=== PATIENT | female | born 1985 | race Caucasian/White ===

== ENCOUNTER 2016-10-30 23:15 | Emergency (ER) | payer OTHER ==
[2016-10-30] MEDS ORDERED: NS 0.9% 1000 ML* 1,000 ML IV ONE (23:27)
[2016-10-30] MEDS ORDERED: Ondansetron INJ* 2 MG/ML VIAL IV ONE (23:27)
[2016-10-30] MEDS ORDERED: Morphine INJ* 2 MG/ML 1 ML SYRINGE IV ONE (23:27)
--- NOTE | 2016-10-31 | ED ---
I, Oh,Soohyun, scribed for Bhavin Forde MD on 10/30/16 at 2331 . Abdominal Pain/Female - HPI Summary HPI Summary: This 31 y/o female presents to ED for acute onset of diffuse abd pain since 2129 PM. She reports eating "stuffs I am not supposed to eat, like spaghetti sauce" this evening. Positive occipital YEUNG pain, nausea, and dry heaving. Ibuprofen did not alleviate abd pain. Zofran ODT was given [employer] as EMS, and improve nausea. PMHx includes GERD, "bleeding ulcer", but pt states that she stopped following up with her GI specialist. Primary care involves provider at [facility]. - History of Current Complaint Stated Complaint: ABD PAIN Time Seen by Provider: 10/30/16 23:24 Hx Obtained From: Patient, Family/Recreation Programmer - male family member present at bedside, Medical Records Onset/Duration: Sudden Onset, Still Present Timing: Constant Location: Diffuse Radiates: No Aggravating Factor(s): Nothing Alleviating Factor(s): Nothing Associated Signs and Symptoms: Positive: Nausea, Vomiting. Negative: Fever Allergies/Adverse Reactions: Allergies Allergy/AdvReac Type Severity Reaction Status Date / Time No Known Allergies Allergy Verified 10/30/16 23:48 PMH/Surg Hx/FS Hx/Imm Hx GI History: Reports: Hx Gastroesophageal Reflux Disease, Hx Ulcer - "bleeding ulcer" - Immunization History Date of Tetanus Vaccine: Unk Date of Influenza Vaccine: None - Family History Known Family History: Negative: Cardiac Disease - Social History Alcohol Use: Occasionally Substance Use Type: Reports: None Smoking Status (MU): Light Every Day Tobacco Smoker Review of Systems Negative: Fever Positive: Abdominal Pain - diffuse, Vomiting - dry heaving, Nausea All Other Systems Reviewed And Are Negative: Yes Physical Exam Triage Information Reviewed: Yes Vital Signs Reviewed: Yes Appearance: Positive: No Pain Distress, Thin Skin: Positive: Warm Eyes: Positive: ASHLIE ENT: Positive: Hearing grossly normal Neck: Positive: Supple Respiratory/Lung Sounds: Positive: Clear to Auscultation, Breath Sounds Present Cardiovascular: Positive: RRR Abdomen Description: Positive: Nontender, No Organomegaly, Soft Bowel Sounds: Positive: Present Musculoskeletal: Positive: Strength/ROM Intact Neurological: Positive: Alert, Oriented to Person Place, Time Psychiatric: Positive: Affect/Mood Appropriate Diagnostics - Laboratory Result Diagrams: 10/31/16 00:15 10/31/16 00:15 Lab Statement: Any lab studies that have been ordered have been reviewed, and results considered in the medical decision making process. Re-Evaluation - Re-Evaluation First Eval Change: Improved - results d/w pt Abdominal Pain Fem Course/Dx - Course Course Of Treatment: This 31 y/o female presents to ED for acute onset of diffuse abd pain since 2130 PM tonight. Positive n/v and dry heaving. PMHx is significant for GERD and "bleeding ulcer". Blood is wnl except for elevated WBC of 12.7, and drug screen is positive for amphetamine and cannibinoid. Pt is discharged with dx of abd pain. - Diagnoses Provider Diagnoses: Abdominal pain Discharge - Discharge Plan Condition: Improved Disposition: HOME Patient Education Materials: Abdominal Pain (ED) Referrals: [facility]ERR[facility] [Outside] - 2 Days The documentation as recorded by the Winston veloz Soohyun accurately reflects the service I personally performed and the decisions made by me, Bhavin Forde MD.
[2016-10-31 00:36] LABS: Hematocrit 39 % (35-47); Hemoglobin 12.8 g/dl (12.0-16.0); Mean Corpuscular HGB Conc 33 g/dl (31-36); Mean Corpuscular Hemoglobin 26 pg (27-31); Mean Corpuscular Volume 76 fL (80-97); Mean Platelet Volume 7 um3 (7.4-10.4); Red Blood Count 5.04 10^6/ul (4.0-5.4); Red Cell Distribution Width 18 % (10.5-15); White Blood Count 12.7 10^3/ul (3.5-10.8)
[2016-10-31 00:56] LABS: ALT 101 U/L (7-52); AST 63 U/L (13-39); Albumin 3.8 g/dL (3.2-5.2); Alkaline Phosphatase 120 U/L (34-104); Anion Gap 8 mmol/L (2-11); BUN/Creatinine Ratio 17.8 (8-20); Blood Urea Nitrogen 13 mg/dL (6-24); C Reactive Protein 3.25 mg/L (< 5.00); CO2 Carbon Dioxide 24 mmol/L (22-32); Calcium 9.1 mg/dL (8.6-10.3); Chloride 104 mmol/L (101-111); EGFR African American 119.6 (>60); Globulin 3.1 g/dL (2-4); Glucose 97 mg/dL (70-100); Lipase < 10 U/L (11.0-82.0); Magnesium 1.6 mg/dL (1.9-2.7); Potassium 3.3 mmol/L (3.5-5.0); Sodium 136 mmol/L (133-145); Total Protein 6.9 g/dL (6.4-8.9)
[2016-10-31 01:18] LABS: Urine Bilirubin Negative (Negative); Urine Glucose Negative (Negative); Urine Nitrite Negative (Negative)
[2016-10-31 02:47] LABS: Benzodiazepine Urine Screen None Detected (None Detect)
[2016-10-31 03:04] VITALS: BP 107/70
== END 2016-10-31 03:05 | disposition home or self-care (01) ==
LOC: ED 23:15
DX: R11.2 Nausea with vomiting, unspecified (principal); R10.9 Unspecified abdominal pain
CPT/HCPCS: 36415; 80053; 80307; 81003; 83605; 83690; 83735; 84702; 85025; 86140; 96374; 96375; 99285; J2270; J2405

== ENCOUNTER 2017-02-10 17:29 | Emergency (ER) | payer SELFPAY | END 2017-02-10 18:49 | disposition left against medical advice (07) | LOC: UCEAST 17:29 | DX: R23.9 Unspecified skin changes (principal); Z53.21 Procedure and treatment not carried out due to patient leaving prior to being seen by health care provider ==

== ENCOUNTER 2017-02-11 10:08 | Emergency (ER) | payer SELFPAY ==
[2017-02-11 10:27] VITALS: BP 129/87
--- NOTE | 2017-02-11 12:10 | UC ---
Skin Complaint HPI - HPI Summary HPI Summary: painful red warm swollen left wrist, multiple abscess under right arm, and in right eye brow - History of Current Complaint Chief Complaint: UCSkin Time Seen by Provider: 02/11/17 12:01 Stated Complaint: RASH/BOILS Hx Obtained From: Patient Hx Last Menstrual Period: 02/10/17 ?: No Onset/Duration: Gradual Onset, Lasting Days Timing: Constant Onset Severity: Moderate Current Severity: Severe Pain Intensity: 7 Pain Scale Used: 0-10 Numeric Location: Diffuse Aggravating Factor(s): Touch Alleviating Factor(s): Nothing Associated Signs & Symptoms: Positive: Negative, Red Streaks - left wrist has increasing pain and swelling will spreading erythema and decreased ROM left wrist Related History: Other: - PMH of injecting Meth--patient reports using last in April 2016 - Allergy/Home Medications Allergies/Adverse Reactions: Allergies Allergy/AdvReac Type Severity Reaction Status Date / Time No Known Allergies Allergy Verified 02/11/17 10:21 Home Medications: Home Medications NK [No Home Medications Reported] 02/11/17 [History Confirmed 02/11/17] Review of Systems Constitutional: Negative Skin: Other - multiple firm abscess right eye brow and right axilla, patient reports healing poorly. Eyes: Negative ENT: Negative Respiratory: Negative Cardiovascular: Negative Gastrointestinal: Negative Genitourinary: Negative Motor: Decreased ROM - left wrist Neurovascular: Negative Musculoskeletal: Arthralgia - left wrist Neurological: Negative Psychological: Negative Is Patient Immunocompromised?: No All Other Systems Reviewed And Are Negative: Yes PMH/Surg Hx/FS Hx/Imm Hx Previously Healthy: No Psychological History: Other - Substance abuse disorder---Injecting Meth last used 05/06 Other Psychological History: Substance abuse disorder - Surgical History Surgical History: None - Family History Known Family History: Negative: Cardiac Disease - Social History Occupation: Employed Part-time Lives: With Family Alcohol Use: Occasionally Substance Use Type: None Substance Use Comment - Amount & Last Used: one or two times per week Smoking Status (MU): Light Every Day Tobacco Smoker Have You Smoked in the Last Year: Yes Cessation Counseling: Patient Advised to Stop Physical Exam Triage Information Reviewed: Yes Appearance: Ill-Appearing - chronic illness, Pain Distress - mild left wrist, Thin Vital Signs: Initial Vital Signs Temp 98.2 F 02/11/17 10:22 Pulse 100 02/11/17 10:22 Resp 20 02/11/17 10:22 BP 129/87 02/11/17 10:22 Pulse Ox 100 02/11/17 10:22 Vital Signs Reviewed: Yes Eye Exam: Normal Eyes: Positive: Conjunctiva Clear ENT Exam: Normal ENT: Positive: Normal ENT inspection, Hearing grossly normal, Pharynx normal, Uvula midline. Negative: Nasal congestion, Nasal drainage, Tonsillar swelling, Tonsillar exudate, Trismus, Muffled voice, Hoarse voice, Sinus tenderness Dental Exam: Normal Dental: Positive: Gross Decay/Caries @ Neck exam: Normal Neck: Positive: Supple, Nontender Respiratory Exam: Normal Respiratory: Positive: Chest non-tender, Lungs clear, Normal breath sounds, No respiratory distress, No accessory muscle use Cardiovascular Exam: Normal Cardiovascular: Positive: RRR, No Murmur, Pulses Normal, Brisk Capillary Refill Musculoskeletal Exam: Normal Musculoskeletal: Positive: Strength Limited @ - left wrist, ROM Limited @ - left wrist, Edema @ - left wrist and forearm Neurological Exam: Normal Neurological: Positive: Alert, Muscle Tone Normal Psychological Exam: Normal Skin: Positive: Other - mutilpe Cysts no fluctulant canters Course/Dx - Course Course Of Treatment: Transfer to [facility] for further evaluation pain ful left wrist - Diagnoses Provider Diagnoses: Left wrist osteo. abscess. substance abuse disorder, nicotine dependent Discharge - Discharge Plan Condition: Guarded Disposition: OTHER Discharge Disposition Comment: [facility] Patient Education Materials: Osteomyelitis (ED) Referrals: Janet Carranza [Primary Care Provider] - 1 Week Additional Instructions: 1. Please go directly to the hospital emergency department for further care. Your wrist is very concerning for infection in the bone.
--- NOTE | 2017-02-13 18:36 | UC ---
Progress - Progress Note Progress Note: pt requesting work note. Note given 02/11-02/18/17 maurilio 02/13/17
== END 2017-02-11 12:29 ==
LOC: UCEAST 10:08
DX: M86.8X4 Other osteomyelitis, hand (principal); F15.11 Other stimulant abuse, in remission; F17.200 Nicotine dependence, unspecified, uncomplicated
CPT/HCPCS: 36415; 86703; 99211; G0463

== ENCOUNTER 2017-02-11 13:53 | Emergency (ER) | payer SELFPAY ==
[2017-02-11 17:03] LABS: Hematocrit 39 % (35-47); Hemoglobin 12.9 g/dl (12.0-16.0); Mean Corpuscular HGB Conc 34 g/dl (31-36); Mean Corpuscular Hemoglobin 26 pg (27-31); Mean Corpuscular Volume 79 fL (80-97); Mean Platelet Volume 7 um3 (7.4-10.4); Red Blood Count 4.91 10^6/ul (4.0-5.4); Red Cell Distribution Width 15 % (10.5-15); White Blood Count 11.7 10^3/ul (3.5-10.8)
[2017-02-11 17:17] LABS: Albumin 3.8 g/dL (3.2-5.2); BUN/Creatinine Ratio 16.4 (8-20); C Reactive Protein 14.16 mg/L (< 5.00); Calcium 8.9 mg/dL (8.6-10.3); EGFR African American 147.1 (>60); EGFR Non-African American 114.4 (>60); Potassium 3.9 mmol/L (3.5-5.0); Total Bilirubin 0.2 mg/dL (0.2-1.0); Total Protein 6.8 g/dL (6.4-8.9)
--- NOTE | 2017-02-11 17:40 | RAD ---
INDICATION: Left wrist pain. TECHNIQUE: 3 views of the left wrist were obtained. FINDINGS: There is diffuse soft tissue swelling which is most prominent along the lateral aspect of the wrist. The bones are normal alignment. No significant focal osseous abnormality or fracture is seen. Joint spaces appear maintained. IMPRESSION: SOFT TISSUE SWELLING.
[2017-02-11] MEDS ORDERED: cefTRIAXone(*) 1 GM in NS 0.9% 50 ML* 50 ML IVPB ONE (17:53)
[2017-02-11] MEDS ORDERED: Ibuprofen TAB* 400 MG PO ONE (18:47)
[2017-02-11 19:27] VITALS: BP 127/92
--- NOTE | 2017-02-12 15:23 | ED ---
Chon Oakley Nilda, scribed for Ronaldo Durbin MD on 02/11/17 at 1806 . Skin Complaint - HPI Summary HPI Summary: This patient is a 31 year old F presenting to [facility] with a chief complaint of constant left wrist pain and swelling for the past could of days. She states she woke up with what felt like a bruise, and it has progressively worsened since then. The patient rates the pain 6/10 in severity. Symptoms aggravated by palpation and movement and alleviated by nothing. Pt reports limited ROM secondary to pain in wrist, as well as rashes on right underarm and face. One month ago, pt was diagnosed with Hepitigo. Pt also reports that had a staph infection. Pt has history of drug abuse and has not used since March 2016. Pt is not on Suboxone. - History of Current Complaint Chief Complaint: EDExtremityUpper Time Seen by Provider: 02/11/17 16:37 Stated Complaint: WRIST INFECTION SENT FROM CC Hx Obtained From: Patient Hx Last Menstrual Period: 02/10/17 Onset/Duration: Started Weeks Ago, Still Present Timing: Constant Current Severity: Moderate Pain Intensity: 6 Pain Scale Used: 0-10 Numeric Skin Location: Face, Arm Aggravating Symptom(s): Touch Alleviating Symptom(s): Nothing Associated Signs & Symptoms: Rash, Joint Swelling - Allergy/Home Medications Allergies/Adverse Reactions: Allergies Allergy/AdvReac Type Severity Reaction Status Date / Time No Known Allergies Allergy Verified 02/11/17 10:21 PMH/Surg Hx/FS Hx/Imm Hx GI History: Reports: Hx Gastroesophageal Reflux Disease, Hx Ulcer - "bleeding ulcer" Sensory History: Denies: Hx Legally Blind - Immunization History Date of Tetanus Vaccine: Unk Date of Influenza Vaccine: None Infectious Disease History: No Infectious Disease History: Denies: Hx Clostridium Difficile, Hx Hepatitis, Hx Human Immunodeficiency Virus (HIV), Hx of Known/Suspected MRSA, Hx Shingles, Hx Tuberculosis, Hx Known/ Suspected VRE, Hx Known/Suspected VRSA, History Other Infectious Disease, Traveled Outside the [place] in Last 30 Days - Family History Known Family History: Positive: Other - cancer (breast, brain) Negative: Cardiac Disease - Social History Occupation: Employed Full-time Lives: With Family Alcohol Use: Rare Substance Use Type: Reports: None Substance Use Comment - Amount & Last Used: one or two times per week Smoking Status (MU): Light Every Day Tobacco Smoker Have You Smoked in the Last Year: Yes Review of Systems Positive: Other - left wrist pain. Positive: Rash - face and right under arm All Other Systems Reviewed And Are Negative: Yes Physical Exam - Summary Physical Exam Summary: VITAL SIGNS: Reviewed. GENERAL: Patient is a well-developed and nourished female who is lying comfortable in the stretcher. Patient is not in any acute respiratory distress. HEAD AND FACE: No signs of trauma. No ecchymosis, hematomas or skull depressions. No sinus tenderness. EYES: PERRLA, EOMI x 2, No injected conjunctiva, no nystagmus. EARS: Hearing grossly intact. Ear canals and tympanic membranes are within normal limits. MOUTH: Oropharynx within normal limits. NECK: Supple, trachea is midline, no adenopathy, no JVD, no carotid bruit, no c- spine tenderness, neck with full ROM. CHEST: Symmetric, no tenderness at palpation LUNGS: Clear to auscultation bilaterally. No wheezing or crackles. CVS: Regular rate and rhythm, S1 and S2 present, no murmurs or gallops appreciated. ABDOMEN: Soft, non-tender. No signs of distention. No rebound no guarding, and no masses palpated. Bowel sounds are normal. EXTREMITIES: FROM in all major joints, no edema, no cyanosis or clubbing. Swelling in left wrist. Good ROM, pulses, and capillary refill. Some tenderness to palpation. NEURO: Alert and oriented x 3. No acute neurological deficits. Speech is normal and follows commands. SKIN: Dry and warm. Multiple skin lesions, small induration on right underarm. Triage Information Reviewed: Yes Vital Signs On Initial Exam: Initial Vitals Temp Pulse Resp BP Pulse Ox 98.1 F 90 20 134/77 100 02/11/17 14:11 02/11/17 14:11 02/11/17 14:11 02/11/17 14:11 02/11/17 14:11 Vital Signs Reviewed: Yes - Sunni Coma Scale Coma Scale Total: 15 Diagnostics - Vital Signs Vital Signs Temp Pulse Resp BP Pulse Ox 02/11/17 14:11 98.1 F 90 20 134/77 100 - Laboratory Lab Results: Lab Results 02/11/17 02/11/17 02/11/17 Range/Units 16:40 16:40 16:40 WBC 11.7 H (3.5-10.8) 10^3/ul RBC 4.91 (4.0-5.4) 10^6/ul Hgb 12.9 (12.0-16.0) g/dl Hct 39 (35-47) % MCV 79 L (80-97) fL MCH 26 L (27-31) pg MCHC 34 (31-36) g/dl RDW 15 (10.5-15) % Plt Count 444 (150-450) 10^3/ul MPV 7 L (7.4-10.4) um3 Sodium 135 (133-145) mmol/L Potassium 3.9 (3.5-5.0) mmol/L Chloride 102 (101-111) mmol/L Carbon Dioxide 26 (22-32) mmol/L Anion Gap 7 (2-11) mmol/L BUN 10 (6-24) mg/dL Creatinine 0.61 (0.51-0.95) mg/dL Est GFR ( Amer) 147.1 (>60) Est GFR (Non-Af Amer) 114.4 (>60) BUN/Creatinine Ratio 16.4 (8-20) Glucose 121 H (70-100) mg/dL Lactic Acid 1.0 (0.5-2.0) mmol/L Calcium 8.9 (8.6-10.3) mg/dL Total Bilirubin 0.20 (0.2-1.0) mg/dL AST 12 L (13-39) U/L ALT 10 (7-52) U/L Alkaline Phosphatase 63 (34-104) U/L C-Reactive Protein 14.16 H (< 5.00) mg/L Total Protein 6.8 (6.4-8.9) g/dL Albumin 3.8 (3.2-5.2) g/dL Globulin 3.0 (2-4) g/dL Albumin/Globulin Ratio 1.3 (1-3) Result Diagrams: 02/11/17 16:40 02/11/17 16:40 Lab Statement: Any lab studies that have been ordered have been reviewed, and results considered in the medical decision making process. - Radiology Wrist XR Radiology Interpretation Completed By: Radiologist - Wrist XR reveals soft tissue swelling. ED physician has reviewed this radiology report and agrees. Course/Dx - Course Assessment/Plan: This patient is a 31 year old F presenting to [facility] with a chief complaint of constant left wrist pain and swelling for the past could of days. She states she woke up with what felt like a bruise, and it has progressively worsened since then. The patient rates the pain 6/10 in severity. Symptoms aggravated by palpation and movement and alleviated by nothing. Pt reports limited ROM secondary to pain in wrist, as well as rashes on right underarm and face. One month ago, pt was diagnosed with Hepitigo. Pt also reports that had a staph infection. Pt has history of drug abuse and has not used since March 2016. Pt is not on Suboxone. Blood work is without significant abnormalities except for CRP of 14.1 and WBC 11.7. Wrist XR, per radiologist, reveals soft tissue swelling. ED physician has reviewed this radiology report and agrees. Her symptoms of wrist pain and swelling may be secondary to slight cellulitis. Pt was given 1 dose of rocephin IV however pt reports she has history of MRSA therefore she will be D/C with Bactrim. The pt is hemodynamically stable, alert and oriented x3. Dx Cellulitis. - Diagnoses Provider Diagnoses: Cellulitis Discharge - Discharge Plan Condition: Stable Disposition: HOME Patient Education Materials: Cellulitis (ED) Referrals: Janet Carranza [Primary Care Provider] - 1 Week Additional Instructions: RETURN TO THE EMERGENCY DEPARTMENT FOR CHANGING OR WORSENING SYMPTOMS. The documentation as recorded by the Chon veloz Nilda accurately reflects the service I personally performed and the decisions made by , Ronaldo Durbin MD.
== END 2017-02-11 19:32 | disposition home or self-care (01) ==
LOC: ED 13:53
DX: L03.114 Cellulitis of left upper limb (principal); Z72.0 Tobacco use; K21.9 Gastro-esophageal reflux disease without esophagitis; Z86.14 Personal history of Methicillin resistant Staphylococcus aureus infection
CPT/HCPCS: 36415; 80053; 83605; 85027; 86140; 87040; A9270-GY; J0696

== ENCOUNTER 2017-02-19 20:54 | Emergency (ER) | payer SELFPAY ==
[2017-02-19] MEDS ORDERED: Dexamethasone IV* 4 MG/ML 1 ML (4 MG) IM ONE (22:14)
[2017-02-19 23:14] LABS: Hematocrit 38 % (35-47); Hemoglobin 12.7 g/dl (12.0-16.0); Mean Corpuscular HGB Conc 34 g/dl (31-36); Mean Corpuscular Hemoglobin 26 pg (27-31); Mean Corpuscular Volume 77 fL (80-97); Mean Platelet Volume 7 um3 (7.4-10.4); Red Cell Distribution Width 15 % (10.5-15); White Blood Count 11.2 10^3/ul (3.5-10.8)
[2017-02-19 23:17] LABS: ALT 16 U/L (7-52); AST 21 U/L (13-39); Albumin 4.1 g/dL (3.2-5.2); Alkaline Phosphatase 66 U/L (34-104); Anion Gap 7 mmol/L (2-11); BUN/Creatinine Ratio 16.7 (8-20); Blood Urea Nitrogen 12 mg/dL (6-24); CO2 Carbon Dioxide 25 mmol/L (22-32); Calcium 9.5 mg/dL (8.6-10.3); Chloride 104 mmol/L (101-111); EGFR African American 121.5 (>60); EGFR Non-African American 94.5 (>60); Globulin 3.2 g/dL (2-4); Glucose 100 mg/dL (70-100); Potassium 3.8 mmol/L (3.5-5.0); Sodium 136 mmol/L (133-145); Total Protein 7.3 g/dL (6.4-8.9)
[2017-02-19 23:42] LABS: Folate > 20.00 ng/mL (>3.99)
[2017-02-19 23:43] LABS: Vitamin B12 446 pg/mL (180-914)
--- NOTE | 2017-02-20 01:44 | ED ---
Haja Oakley Nikita, scribed for Adrien Kim MD on 02/19/17 at 2126 . Lower Extremity - HPI Summary HPI Summary: This patient is a 31 year old F presenting to ED with a chief complaint of lateral R foot/leg numbness and tingling since yesterday morning after waking up. The CC is described as constant, worsened since onset, radiating up the leg from the foot, doesnt want to work, and turning red and purple. The patient rates the pain 4/10 in severity. Symptoms aggravated by ambulation (pt is able to ambulate but pain increases). Symptoms alleviated by rest (pt used heat and ice packs to no relief). Patient reports feeling in calf and outer thigh when stretching. Patient denies recent trauma, back pain, difficulty urinating, dysuria, vaginal bleeding/discharge, abdominal pain, CP, SOB, palpitations, and rashes on the back. Her L wrist is feeling much better. - History of Current Complaint Chief Complaint: EDExtremityLower Stated Complaint: NUMBNESS IN RT LEG Hx Obtained From: Patient Hx Last Menstrual Period: 02/10/17 Onset of Pain: Days Onset/Duration: Still Present Severity Initially: Moderate Severity Currently: Moderate Pain Intensity: 4 Pain Scale Used: 0-10 Numeric Timing: Constant Location: Is Discrete @ - R LE Associated Signs And Symptoms: Positive: Other - Patient reports feeling in calf and outer thigh when stretching. Patient denies recent trauma, back pain, difficulty urinating, dysuria, vaginal bleeding/discharge, abdominal pain, CP, SOB, palpitations, and rashes on the back. Her L wrist is feeling much better. Aggravating Factor(s): Ambulation Alleviating Factor(s): Rest - (pt used heat and ice packs to no relief) - Allergies/Home Medications Allergies/Adverse Reactions: Allergies Allergy/AdvReac Type Severity Reaction Status Date / Time No Known Allergies Allergy Verified 02/11/17 10:21 PMH/Surg Hx/FS Hx/Imm Hx Endocrine/Hematology History: Denies: Hx Diabetes Cardiovascular History: Denies: Hx Coronary Artery Disease, Hx Hypertension Respiratory History: Reports: Hx Asthma GI History: Reports: Hx Gastroesophageal Reflux Disease, Hx Ulcer - "bleeding ulcer" Sensory History: Denies: Hx Legally Blind Opthamlomology History: Denies: Hx Legally Blind - Immunization History Date of Tetanus Vaccine: Unk Date of Influenza Vaccine: None Infectious Disease History: No Infectious Disease History: Denies: Hx Clostridium Difficile, Hx Hepatitis, Hx Human Immunodeficiency Virus (HIV), Hx of Known/Suspected MRSA, Hx Shingles, Hx Tuberculosis, Hx Known/ Suspected VRE, Hx Known/Suspected VRSA, History Other Infectious Disease, Traveled Outside the [place] in Last 30 Days - Family History Known Family History: Positive: Other - cancer (breast, brain) Negative: Cardiac Disease - Social History Alcohol Use: Rare Substance Use Type: Reports: None Substance Use Comment - Amount & Last Used: one or two times per week Smoking Status (MU): Light Every Day Tobacco Smoker Have You Smoked in the Last Year: Yes Review of Systems Negative: Palpitations, Chest Pain Negative: Shortness Of Breath Negative: Abdominal Pain Positive: other - denies difficulty urinating. Negative: dysuria, discharge - denies vaginal bleeding/discharge Positive: Other - L wrist is feeling better; denies recent trauma, back pain Negative: Rash - denies rash on back Neurological: Other - feeling in calf and outer thigh when stretching All Other Systems Reviewed And Are Negative: Yes Physical Exam Triage Information Reviewed: Yes Vital Signs On Initial Exam: Initial Vitals Temp Pulse Resp BP Pulse Ox 97.2 F 96 18 135/92 100 02/19/17 21:00 02/19/17 21:00 02/19/17 21:00 02/19/17 21:00 02/19/17 21:00 Vital Signs Reviewed: Yes Appearance: Positive: Well-Appearing, Well-Nourished Skin: Positive: Warm Head/Face: Positive: Normal Head/Face Inspection Eyes: Positive: Normal ENT: Positive: Normal ENT inspection - normal mucous membranes Neck: Positive: Supple, Nontender Respiratory/Lung Sounds: Positive: Clear to Auscultation Cardiovascular: Positive: Normal, Other - normal capillary refil and pulses in feet and ankles Abdomen Description: Positive: Nontender, Soft, Other: - no masses Bowel Sounds: Positive: Present Musculoskeletal: Positive: Strength/ROM Intact, Other - Diffuse tenderness to palpation along forefoot, lateral foot, lateral calf, and lateral thigh; Pain reproduced with movement in all directions; Mild hyperesthesia lateral forefoot ; L wrist mild bruising of volar surface, suggestive of prior healing infection consistent with hx; no midline tenderness in the back; no calf swelling or tenderness on L side; negative Georgina's sign Neurological: Positive: CN Intact II-III, Other - No weakness or numbness in LE bilaterally; No obvious cranial nerve abnormalities Psychiatric: Positive: Normal Diagnostics - Vital Signs Vital Signs Temp Pulse Resp BP Pulse Ox 02/19/17 21:00 97.2 F 96 18 135/92 100 - Laboratory Lab Results: Lab Results 02/19/17 02/19/17 02/19/17 Range/Units 22:40 22:40 22:40 WBC 11.2 H (3.5-10.8) 10^3/ul RBC 4.90 (4.0-5.4) 10^6/ul Hgb 12.7 (12.0-16.0) g/dl Hct 38 (35-47) % MCV 77 L (80-97) fL MCH 26 L (27-31) pg MCHC 34 (31-36) g/dl RDW 15 (10.5-15) % Plt Count 679 H D (150-450) 10^3/ul MPV 7 L (7.4-10.4) um3 Neut % (Auto) 72.0 (38-83) % Lymph % (Auto) 20.1 L (25-47) % Mellette % (Auto) 6.0 (1-9) % Eos % (Auto) 0.4 (0-6) % Baso % (Auto) 1.5 (0-2) % Absolute Neuts (auto) 8.1 H (1.5-7.7) 10^3/ul Absolute Lymphs (auto) 2.3 (1.0-4.8) 10^3/ul Absolute Monos (auto) 0.7 (0-0.8) 10^3/ul Absolute Eos (auto) 0 (0-0.6) 10^3/ul Absolute Basos (auto) 0.2 (0-0.2) 10^3/ul Absolute Nucleated RBC 0.02 10^3/ul Nucleated RBC % 0.1 INR (Anticoag Therapy) 1.10 H (0.77-1.02) Sodium 136 (133-145) mmol/L Potassium 3.8 (3.5-5.0) mmol/L Chloride 104 (101-111) mmol/L Carbon Dioxide 25 (22-32) mmol/L Anion Gap 7 (2-11) mmol/L BUN 12 (6-24) mg/dL Creatinine 0.72 (0.51-0.95) mg/dL Est GFR ( Amer) 121.5 (>60) Est GFR (Non-Af Amer) 94.5 (>60) BUN/Creatinine Ratio 16.7 (8-20) Glucose 100 (70-100) mg/dL Calcium 9.5 (8.6-10.3) mg/dL Total Bilirubin 0.30 (0.2-1.0) mg/dL AST 21 (13-39) U/L ALT 16 (7-52) U/L Alkaline Phosphatase 66 (34-104) U/L Troponin I 0.00 (<0.04) ng/mL Total Protein 7.3 (6.4-8.9) g/dL Albumin 4.1 (3.2-5.2) g/dL Globulin 3.2 (2-4) g/dL Albumin/Globulin Ratio 1.3 (1-3) Vitamin B12 446 (180-914) pg/mL Folate > 20.00 (>3.99) ng/mL Beta HCG, Quant < 0.60 mIU/mL Result Diagrams: 02/19/17 22:40 02/19/17 22:40 Lab Statement: Any lab studies that have been ordered have been reviewed, and results considered in the medical decision making process. - CT Brain CT Interpretation Completed By: Radiologist - 1. No definitive evidence of acute intracranial hemorrhage, intracranial mass effect, hydrocephalus, or depressed calvarial fracture is appreciated. 2. The visualized portions of the paranasal sinuses are clear. If symptoms of concern persists, correlation with follow up CT or MRI is advised, at your clinical discretion. ED physician has reviewed this radiology report and agrees. - EKG 2205 Cardiac Rate: NL EKG Rhythm: Sinus Rhythm - 93 bpm EKG Interpretation: Consider R atrial enlargement; RSR in V1 or V2, probably nml variant Re-Evaluation - Re-Evaluation First Eval Re-Evaluation Time: 01:26 Comment: Pt is feeling better. Discussed with pt about discharge plan. Lower Extremity Course/Dx - Course Assessment/Plan: CT negative for acute pathology. Ambulating normally in ED. NAD. abs are within normal limits. Normal folate and B12 levels. No evidence of coordination deficit. Exam is consistent with possible peripheral neuropathy that is unilateral and stable at this time. No evidence of respiratory distress. Symptoms are waxing and waning and vague. Not any clear dermatomal distribution. Instructed to f/u with neurologist for further care. Pt agrees to and understands discharge instructions. - Diagnoses Differential Diagnosis/HQI/PQRI: Positive: Other - numbness Provider Diagnoses: Numbness Discharge - Discharge Plan Condition: Stable Disposition: HOME Patient Education Materials: Paresthesia (ED) Referrals: Han Posadas MD [Medical Doctor] - 7 Days Janet Carranza [Primary Care Provider] - 7 Days Additional Instructions: PLEASE MAKE AN APPOINTMENT FIRST THING IN THE MORNING TO SEE A NEUROLOGIST WITHIN 1 WEEK. PLEASE RETURN TO THE ED FOR ANY WORSENING OR CONCERNING SYMPTOMS. PLEASE MAKE AN APPOINTMENT TO SEE YOUR PRIMARY CARE DOCTOR TO BE SEEN WITHIN 1 WEEK. The documentation as recorded by the Haja veloz Nikita accurately reflects the service I personally performed and the decisions made by me, Adrien Kim MD.
[2017-02-20 01:49] VITALS: BP 140/76
--- NOTE | 2017-02-20 07:40 | RAD ---
INDICATION: Right foot and leg numbness COMPARISON: None. TECHNIQUE: Contiguous axial sections of the brain were obtained from the skull base to the vertex without contrast. FINDINGS: The ventricles, cisterns and sulci are within normal limits. The lozoya-white matter differentiation is adequately maintained and there is no sulcal effacement. No significant focal abnormality or mass effect is present. There is no evidence for intracranial hemorrhage. No significant focal osseous abnormality is present. The visualized portion of the paranasal sinuses and mastoid air cells appear clear. IMPRESSION: Normal CT of the brain.
== END 2017-02-20 01:47 | disposition home or self-care (01) ==
LOC: ED 20:54
DX: R20.0 Anesthesia of skin (principal)
CPT/HCPCS: 36415; 70450; 80053; 82607; 82746; 84484; 84702; 85025; 85610; 93005; 96372; 99282; J1100

== ENCOUNTER 2017-10-23 13:18 | Emergency (ER) | payer SELFPAY ==
[2017-10-23] MEDS ORDERED: Ibuprofen TAB* 400 MG PO ONE (13:31)
[2017-10-23] MEDS ORDERED: HYDROcodone/ACETAMIN 5-325 MG* 1 TAB PO ONE (13:51)
--- NOTE | 2017-10-23 14:02 | UC ---
Back Pain HPI - HPI Summary HPI Summary: This is [facility] documenting for attending Christian Siu MD. Pt is a 32 y/o F c/o back pain onset 1 day ago s/p trauma. Pain is localized in her RUQ posterior chest and radiates through to her anterior chest. Assoc. Sx: SOB, swelling, R arm numbness - loss of feeling, weakness - secondary to pain. Denies: abd pain, neck pain. She reports being in bathroom when she slipped on the wet floor; She fell, landing on the counter with her R upper back, bracing the fall with her R arm. She reports taking tylenol/motrin to alleviate the pain. - History of Current Complaint Stated Complaint: RIB INJURY Time Seen by Provider: 10/23/17 13:44 Hx Obtained From: Patient Hx Last Menstrual Period: 02/10/17 ?: No - via test: results (-) Onset/Duration: Sudden Onset, Lasting Days - ~ 1 day, Still Present, Worse Since - onset Timing: Constant Back Pain: Is Diffuse - RU back Aggravating Factor(s): Movement, Lifting, Bending, Walking, Cough, Other - Deep breaths Alleviating Factor(s): Nothing Associated Signs And Symptoms: Positive: Weakness - R arm, Numbness - Loss of feeling in R arm - Allergies/Home Medications Allergies/Adverse Reactions: Allergies Allergy/AdvReac Type Severity Reaction Status Date / Time No Known Allergies Allergy Verified 10/23/17 14:40 PMH/Surg Hx/FS Hx/Imm Hx Endocrine History: Other Other Endocrine History: NEG: DM Cardiovascular History: Other Other Cardiovascular History: NEG: CAD, HTN. - Surgical History Surgical History: None - Family History Known Family History: Positive: Other - cancer (breast, brain) Negative: Cardiac Disease, Hypertension, Diabetes - Social History Alcohol Use: Rare Substance Use Type: None Substance Use Comment - Amount & Last Used: one or two times per week Smoking Status (MU): Light Every Day Tobacco Smoker Have You Smoked in the Last Year: Yes Review of Systems Respiratory: Shortness Of Breath Cardiovascular: Chest Pain Gastrointestinal: Other - NEG: abd pain Musculoskeletal: Decreased ROM - R arm - cannot move, secondary to pain, Other: - POS: RUQ - back pain, swelling NEG: neck pain Neurological: Weakness - R arm, Numbness - R arm All Other Systems Reviewed And Are Negative: Yes Physical Exam - Summary Physical Exam Summary: General: well-appearing, mild/moderate pain distress. Skin: warm, color reflects adequate perfusion, dry Head: normal Eyes: EOMI, ASHLIE ENT: normal Neck: supple, nontender Respiratory: CTA, breath sounds present Cardiovascular: RRR Abdomen: soft, nontender Bowel: present Musculoskeletal: normal, strength/ROM intact Chest: RU posterior/anterior chest: (+) TTP. Neurological: sensory/motor intact, A&O x3 Psychological: affect/mood appropriate TTP RU posterior/anterior chest. Pain w ROM of shoulder. Triage Information Reviewed: Yes Vital Signs Reviewed: Yes Diagnostics - Radiology Rib XR Xray Interpretation: No Acute Changes - IMPRESSION: No acute fracture of the ribs noted. Radiology Interpretation Completed By: Radiologist - Provider has reviewed report. Back Pain Course/Dx - Course Course Of Treatment: DISCUSSED RESULTS OF X-RAYS WITH THE PATIENT. PAIN LIMITS ROM OF RT ARM. NORMAL PULSES/CAP REFILL RT ARM. F/U PRM; RECHECK SOONER IF WORSE. - Differential Dx/Diagnosis Provider Diagnoses: MUSCULOSKELETAL CHEST PAIN Discharge - Sign-Out/Discharge Documenting (check all that apply): Patient Departure - Discharge Plan Condition: Stable Disposition: HOME Prescriptions: Ibuprofen TAB* [Motrin TAB* 800 MG] 800 mg PO TID #20 tab oxyCODONE/Acetamin 5/325 MG* [Percocet 5/325 TAB*] 1 tab PO Q4H PRN #30 tab MDD 6 PRN Reason: Pain Patient Education Materials: Rib Fracture (ED), Noncardiac Chest Pain (ED), Chest Wall Pain (ED) Referrals: Janet Carranza [Primary Care Provider] - Additional Instructions: FOLLOW UP WITH YOUR DOCTOR. GET RECHECKED FOR ANY WORSENING OF YOUR CONDITION; PAIN, SHORTNESS F BREATH, WEAKNESS, NUMBNESS, YOU FEEL ILL OR QUESTIONS OR CONCERNS. - Billing Disposition and Condition Condition: STABLE Disposition: Home
--- NOTE | 2017-10-23 14:28 | RAD ---
Indication: RIGHT rib pain following injury. Shortness of breath. Comparison: No relevant prior exams available on the [facility] PACS for comparison. Technique: Dual energy PA chest and 5 view dedicated RIGHT unilateral rib series. Report: Lateral RIGHT thoracic skin marker noted indicating the site of clinical concern. No RIGHT rib fracture, pulmonary contusion, pleural effusion, or pneumothorax. Clear lungs. The heart, pulmonary vasculature, and mediastinal contours are unremarkable. Unremarkable soft tissue contours. IMPRESSION: #. Negative exam.
[2017-10-23 14:39] VITALS: BP 135/83
== END 2017-10-23 14:47 | disposition home or self-care (01) ==
LOC: UCEAST 13:18
DX: R07.89 Other chest pain (principal); R06.02 Shortness of breath; R20.0 Anesthesia of skin; Z80.3 Family history of malignant neoplasm of breast; Z80.8 Family history of malignant neoplasm of other organs or systems; F17.200 Nicotine dependence, unspecified, uncomplicated
CPT/HCPCS: 84702; 99213; A9270-GY; G0463